=== PATIENT | female | born 1965 | race Two or more races ===

== ENCOUNTER 2017-01-14 01:35 | Emergency (ER) | payer MEDICARE, MEDICAID ==
[2017-01-14] MEDS ORDERED: MORPHINE SULFATE 10 MG/ML INJ IV ONE ×2 (02:49→06:40)
[2017-01-14] MEDS ORDERED: ONDANSETRON HCL INJ/PF 4 MG/2 ML SDV IV ONE (02:49)
--- NOTE | 2017-01-14 02:50 | ER Document Report ---
ED GI/ <MARION BOWMAN - Last Filed: 01/14/17 04:44> - General TRAVEL OUTSIDE OF THE [place] IN LAST 30 DAYS: No <CAPRI HENNESSY - Last Filed: 01/14/17 08:40> - General Chief Complaint: Abdominal Pain Stated Complaint: FLANK PAIN Time Seen by Provider: 01/14/17 02:19 Notes: Patient is a 51-year-old female who presents emergency department with her 2 daughters with a chief complaint of right lower quadrant pain for the past 24 hours. History and translation per her daughter Jocy were at the bedside. Family states that 2 days ago she was having nausea and vomiting which resolved on its own then after dialysis last evening approximately 24 hours ago she had sudden onset of right lower quadrant pain after removing fluid from dialysis. Has been in significant pain all day and had not much of an appetite. States she did have a bowel movement prior to arrival to the ED. Patient is been doing peritoneal dialysis nightly for the past 14 months with no previous history of bacterial peritonitis or complications from peritoneal dialysis. Family denies any fevers, chills, lethargy. Past medical history significant for diabetes, chronic kidney disease, previous hemodialysis, previous procedures for fistula in the left AC. Solutions Development Analyst is Dr. Burgos at [facility]. (CAPRI HENNESSY) - Related Data Allergies/Adverse Reactions: No Known Allergies Allergy (Verified 01/14/17 01:40) Home Medications: Current Home Medications Furosemide [Lasix] 200 mg PO BID 01/14/17 [History] Nifedipine [Procardia Xl] 90 mg PO DAILY 01/14/17 [History] Potassium Chloride 20 meq PO DAILY 01/14/17 [History] Sevelamer Carbonate [Renvela] 800 mg PO DAILY 01/14/17 [History] Sucroferric Oxyhydroxide [Velphoro] 500 mg PO DAILY 01/14/17 [History] Past Medical History - Social History Smoking Status: Unknown if Ever Smoked Family History: Reviewed & Not Pertinent Patient has suicidal ideation: No Patient has homicidal ideation: No - Past Medical History Cardiac Medical History: Reports: Hx Hypercholesterolemia, Hx Hypertension Endocrine Medical History: Reports: Hx Diabetes Mellitus Type 2 Renal/ Medical History: Reports: Hx End Stage Renal Disease - Chronic Renal Disease, Hx Peritoneal Dialysis Past Surgical History: Reports: Hx Abdominal Surgery - Catheters for peritoneal dialysis <CAPRI HENNESSY - Last Filed: 01/14/17 08:40> Review of Systems - Review of Systems Constitutional: No symptoms reported EENT: No symptoms reported Cardiovascular: No symptoms reported Respiratory: No symptoms reported Gastrointestinal: See HPI -: Yes All other systems reviewed and negative <TANNERCAPRI - Last Filed: 01/14/17 08:40> Physical Exam <MARION BOWMAN - Last Filed: 01/14/17 04:44> <CAPRI HENNESSY - Last Filed: 01/14/17 08:40> - Vital signs Vitals: Temp Pulse Resp BP Pulse Ox 98.3 F 82 18 134/58 H 98 01/14/17 01:40 01/14/17 01:40 01/14/17 01:40 01/14/17 01:40 01/14/17 01:40 - Notes Notes: PHYSICAL EXAM GENERAL: Alert, interacts well. LUNGS: Clear to auscultation bilaterally, no wheezes, rales, or rhonchi. No respiratory distress. HEART: Regular rate and rhythm. No murmurs, gallops, or rubs. ABDOMEN: Soft, nondistended, diffusely tender but worse in the right lower quadrant. No guarding, mild rebound, without rigidity.. Bowel sounds present in all 4 quadrants. EXTREMITIES: Moves all 4 extremities spontaneously. No edema, radial and dorsalis pedis pulses 2/4 bilaterally. No cyanosis. NEUROLOGICAL: Alert and oriented x4. Normal speech. PSYCH: Normal affect, normal mood. SKIN: Warm, dry, normal turgor. No rashes or lesions noted. (CAPRI HENNESSY) Course - Laboratory Result Diagrams: 01/14/17 03:35 01/14/17 03:35 <MARION BOWMAN - Last Filed: 01/14/17 04:44> - Laboratory Result Diagrams: 01/14/17 03:35 01/14/17 03:35 - Diagnostic Test Radiology reviewed: Image reviewed, Reports reviewed <CAPRI HENNESSY - Last Filed: 01/14/17 08:40> - Re-evaluation Re-evalutation: 01/14/17 04:44 I am supervising physician seeing the patient with Capri Hennessy physician clinical lab assistant. Patient has a history of recent cloudy dialysis fluid at her last exchange and has a white count of over 20,000 with abdominal pain. This is consistent with probable bacterial peritonitis. Patient is followed by Dr. Burgos. Currently did speak with Dr. Manzo who recommends exchange transfusion to obtain fluid to send for culture and cell count. We have already started to set that up to have that going. He recommends after the fluid has been exchanged to give the patient 1 g of vancomycin and 80 mg of gentamicin. Then have the patient transferred to [facility] being that we do not have any nephrology services here. I therefore called to speak with Dr. Jacome, hospitalist at [facility]. The transfer center coming back informed that Dr. Jacome has accepted the patient however she is on short waiting list. They said that she is #2 on a waiting list and therefore should have a bed hopefully soon. (MARION BOWMAN) 01/14/17 04:28 Patient is a 51-year-old female who is hemodynamically stable, no acute distress and afebrile. Presentation is concerning for bacterial peritonitis given risk factors with peritoneal dialysis. Labs do show a white blood cell count of 20.9. Patient does remain afebrile. CT without evidence of acute appendicitis. We do not have nephrology donor relations manager therefore call was placed to [facility] where patient's channel process plant operator is located. Discussed with channel process plant operator donor relations manager Dr. Manzo who states that the patient requires transport to their facility for inpatient care of bacterial peritonitis. Blood cultures and peritoneal fluid were sent for culture and cell count. Patient initiated on IV vancomycin and gentamicin per request of Dr. Manzo. Otherwise patient remaining stable and family remains at the bedside. 01/14/17 07:39 Call placed to [facility] who states that she will likely have a bed this afternoon pending discharges. Patient is resting comfortably after premedication with pain meds. Family plans to stay at the bedside until transfer. Discussed plan with Dr. Manzo who has requested Dianeal solution with Vancomycin and Fortez to be mixed for the patient and given until she is able to acquire a bed at [facility]. 01/14/17 08:20 I was contacted by patients Solutions Development Analyst Dr. Burgos who is requesting that the patient NOT be transferred to [facility]. He is requesting that she be discharged and sent to her dialysis center in [place] immediately upon discharge for outpatient management of her bacterial peritonitis. Patient is HDS and resting comfortably after medication. Discussed new plan with family who are agreeable to drive her to the dialysis center. I did speak with [facility] who is expecting the patient today for management. (CAPRI HENNESSY) - Vital Signs Vital signs: Temp Pulse Resp BP Pulse Ox 98.3 F 82 23 H 132/69 H 97 01/14/17 01:40 01/14/17 01:40 01/14/17 07:02 01/14/17 07:02 01/14/17 07:02 - Laboratory Laboratory results interpreted by me: 01/14/17 01/14/17 03:35 03:35 WBC 20.9 H Hgb 10.5 L Hct 32.2 L MCH 26.4 L RDW 15.2 H Seg Neuts % (Manual) 88 H Lymphocytes % (Manual) 9 L Abs Neuts (Manual) 18.4 H Potassium 3.3 L Chloride 95 L BUN 63 H Creatinine 9.82 H Est GFR ( Amer) 5 L Est GFR (Non-Af Amer) 4 L Glucose 245 H Calcium 6.8 L* Direct Bilirubin 0.6 H Alkaline Phosphatase 222 H Albumin 3.2 L Discharge <MARION BOWMAN - Last Filed: 01/14/17 04:44> <CAPRI HENNESSY - Last Filed: 01/14/17 08:40> - Discharge Clinical Impression: Bacterial peritonitis Condition: Stable Disposition: HOME, SELF-CARE Additional Instructions: Please report over to [facility] in [place] immediately upon discharge for management of your bacterial peritonitis. This is per recommendation from your channel process plant operator Dr. Burgos. If you are not able to make it over to [place] dialysis, please report immediately to the [facility] emergency department in [place] or return back here. Forms: Parent Work Note Referrals: ROXANNE BURGOS MD [NO LOCAL MD] - 01/14/17 (Immediately upon discharge)
--- NOTE | 2017-01-14 03:42 | RADIOLOGY REPORT (SQ) ---
EXAM DESCRIPTION: CT ABD/PELVIS NO ORAL OR IV COMPLETED DATE/TIME: 01/14/2017 3:11 am REASON FOR STUDY: RLQ pain, peritoneal dialysis patient COMPARISON: None. TECHNIQUE: CT scan of the abdomen and pelvis performed without intravenous or oral contrast. Images reviewed with lung, soft tissue, and bone windows. Reconstructed coronal and sagittal MPR images revi ewed. All images stored on PACS. All CT scanners at this facility use dose modulation, iterative reconstruction, and/or weight based d osing when appropriate to reduce radiation dose to as low as reasonably achievable (ALARA). [facility]: Dose Right [facility]: CareDose [facility]: Dose Right [facility]: Teradose 4D [facility]: [employer] Technologies RADIATION DOSE: CT Rad equipment meets quality standard of care and radiation dose reduction techniq ues were employed. CTDIvol: 18.4 mGy. DLP: 1057 mGy-cm.mGy. LIMITATIONS: Motion artifact. FINDINGS: LOWER CHEST: Bibasilar atelectasis. No pleural effusion. NON-CONTRASTED LIVER, SPLEEN, ADRENALS: Evaluation limited by lack of IV contrast. No identified sign ificant masses. PANCREAS: No peripancreatic inflammatory changes. GALLBLADDER: Present. RIGHT KIDNEY AND URETER: Assessment for masses limited by lack of IV contrast. No significant calci fications. No hydronephrosis or hydroureter. LEFT KIDNEY AND URETER: Assessment for masses limited by lack of IV contrast. No significant calcif ications. No hydronephrosis or hydroureter. AORTA AND RETROPERITONEUM: Extensive atherosclerotic calcifications of the branches of the abdominal aorta. No abdominal aortic aneurysm. BOWEL AND PERITONEAL CAVITY: No dilated bowel loops. There is small amount of free fluid. Trace pne umoperitoneum. APPENDIX: Not visualized. PELVIS, BLADDER, AND ABDOMINAL WALL:The urinary bladder is decompressed. Uterus is present. There i s free pelvic fluid. The peritoneal catheter enters through the lower abdominal wall. Small fat and fluid containing umbilical hernia. BONES: Degenerative changes in the spine. IMPRESSION: Small pneumoperitoneum, may be secondary to peritoneal dialysis vs bowel perforation. C linical correlation recommended. Small ascites. COMMENT: Quality ID # [id number]: Final reports with documentation of one or more dose reduction techniques (e.g., Automated exposure control, adjustment of the mA and/or kV according to patient size, use of iterative reconstruction technique) TECHNICAL DOCUMENTATION: JOB ID: [id number]-64 2010 [facility] [employer]- All Rights Reserved
[2017-01-14 03:51] LABS: HEMATOCRIT 32.2 % (36.0-47.0); HEMOGLOBIN 10.5 g/dL (12.0-15.5); HGB HCT DIFFERENCE -0.7; MEAN CORPUSCULAR HEMOGLOBIN 26.4 pg (27.0-33.4); MEAN CORPUSCULAR HGB CONC 32.6 g/dL (32.0-36.0); MEAN CORPUSCULAR VOLUME 81 fl (80-97); RED BLOOD COUNT 3.98 10^6/uL (3.72-5.28); RED CELL DISTRIBUTION WIDTH 15.2 % (11.5-14.0); WHITE BLOOD COUNT 20.9 10^3/uL (4.0-10.5)
[2017-01-14 04:02] LABS: ALANINE AMINOTRANSFERASE 36 U/L (9-52); ALBUMIN 3.2 g/dL (3.5-5.0); ALKALINE PHOSPHATASE 222 U/L (38-126); ASPARTATE AMINO TRANSFERASE 19 U/L (14-36); BILIRUBIN,DIRECT 0.6 mg/dL (0.0-0.4); BILIRUBIN,TOTAL 0.7 mg/dL (0.2-1.3); BLOOD UREA NITROGEN 63 mg/dL (7-20); CHLORIDE 95 mmol/L (98-107); CREATININE RESULT 9.82 mg/dL (0.52-1.25); GLUCOSE 245 mg/dL (75-110); POTASSIUM 3.3 mmol/L (3.6-5.0); SODIUM 137.5 mmol/L (137-145); TOTAL PROTEIN 6.7 g/dL (6.3-8.2)
[2017-01-14 04:13] LABS: ANION GAP 19 (5-19); CARBON DIOXIDE 24 mmol/L (22-30)
[2017-01-14 04:14] LABS: BASOPHILS % (MANUAL) 0 % (0-2); EOSINOPHILS % (MANUAL) 0 % (0-6); LYMPHOCYTES % (MANUAL) 9 % (13-45); TOTAL CELLS COUNTED 100
[2017-01-14 04:15] LABS: TOXIC GRANULATION SLIGHT
[2017-01-14 04:16] LABS: PLATELET CLUMPS PRESENT; RBC MORPHOLOGY COMMENT NORMO-CYTIC/CHROMIC
[2017-01-14 04:20] LABS: CALCIUM 6.8 mg/dL (8.4-10.2)
[2017-01-14] MEDS ORDERED: GENTAMICIN SULFATE INJ 80 MG/2 ML VIAL IV ONE (05:46)
[2017-01-14] MEDS ORDERED: VANCOMYCIN HCL INJ 1000 MG VIAL IV ONE (05:46)
[2017-01-14 07:36] LABS: FLUID APPEARANCE CLOUDY; FLUID RBC SIDE 1 73; FLUID RBC SIDE 2 61; FLUID TYPE PERITONEAL; STAIN REACTIVITY CHECK ACCEPTABLE
[2017-01-14 07:37] LABS: FLUID RBC DILUENT USED NONE USED; FLUID RBC DILUTION FACTOR 1
[2017-01-14 08:41] VITALS: BP 128/59
[2017-01-15 08:23] LABS: TOTAL RBC SQUARES COUNTED FLD 225
== END 2017-01-14 08:41 | disposition home or self-care (01) ==
LOC: ER 01:35
DX: K65.9 Peritonitis, unspecified (principal); B96.89 Other specified bacterial agents as the cause of diseases classified elsewhere; R10.31 Right lower quadrant pain; R10.817 Generalized abdominal tenderness; R63.0 Anorexia; I12.0 Hypertensive chronic kidney disease with stage 5 chronic kidney disease or end stage renal disease; E11.22 Type 2 diabetes mellitus with diabetic chronic kidney disease; N18.6 End stage renal disease; Z99.2 Dependence on renal dialysis; Z98.890 Other specified postprocedural states
CPT/HCPCS: 96376; 99284; 96375; 96365; 96366; 96367; 36415; 87040; 87205; 87070; 85025; 89050; 87075; 87077; 80053; 87186; 74176; J1580; J2270; J2405; J3370

== ENCOUNTER 2019-04-29 04:03 | Inpatient (IN) | payer MEDICARE, MEDICAID ==
--- NOTE | 2019-04-29 04:30 | ER Document Report ---
ED Fall - General Chief Complaint: Fall Stated Complaint: FALL/ANKLE PAIN Time Seen by Provider: 04/29/19 04:27 Mode of Arrival: Medic Information source: Patient Notes: This 53-year-old dialysis patient got up this morning to go to the bathroom when she lost her footing and fell. The patient felt lightheaded, did not pass out and injured the right ankle. Apparently lost her balance falling onto the floor and unable to get up. EMS was called and family noted deformity of the right ankle. She is a dialysis patient and is scheduled for dialysis. TRAVEL OUTSIDE OF THE [place] IN LAST 30 DAYS: No - Related data Allergies/Adverse Reactions: No Known Allergies Allergy (Verified 01/14/17 01:40) Past Medical History - Social History Smoking Status: Unknown if Ever Smoked Family History: Reviewed & Not Pertinent - Past Medical History Cardiac Medical History: Reports: Hx Hypercholesterolemia, Hx Hypertension Endocrine Medical History: Reports: Hx Diabetes Mellitus Type 2 Renal/ Medical History: Reports: Hx End Stage Renal Disease - Chronic Renal Disease, Hx Peritoneal Dialysis Past Surgical History: Reports: Hx Abdominal Surgery - Catheters for peritoneal dialysis Review of Systems - Review of Systems Notes: Constitutional: Negative for fever. HENT: Negative for sore throat. Eyes: Negative for visual changes. Cardiovascular: Negative for chest pain. Respiratory: Negative for shortness of breath. Gastrointestinal: Negative for abdominal pain, vomiting or diarrhea. Genitourinary: Negative for dysuria. Musculoskeletal: + Right ankle deformity, + right ankle pain Skin: Negative for rash. Neurological: Negative for headaches, weakness or numbness. 10 point ROS negative except as marked above and in HPI. Physical Exam - Vital signs Vitals: Resp Pulse Ox 23 H 97 04/29/19 04:17 04/29/19 04:17 - Notes Notes: PHYSICAL EXAMINATION: Physical Exam: General: Well-nourished well-developed 53-year-old woman in no acute distress HEENT: NC/AT, pupils equal round and reactive to light, MM moist,nares clear, oropharynx clear, airway patent Neck: supple, no adenopathy, no masses. Good range of motion Lungs: clear, no wheezing, no rales no rhonchi CVS: Regular rate and rhythm no murmur gallop or rub Abdomen: Soft, active, nontender, no masses, no hepatosplenomegaly Ext: Right ankle with obvious deformity and crepitus, good dorsalis pedis pulse.. Neuro: Alert and responsive, moving all 4 extremities on command, cranial nerves intact, no focal findings Skin: Intact no open lesions, no rash PSYCH: Normal mood, normal affect. Course - Re-evaluation Re-evalutation: 04/29/19 05:52 53-year-old dialysis 1 patient fall with trimalleolar fracture of the right ankle with dislocation. The ankle was reduced and splinted. I spoke with the orthopedist on-call Dr. Crocker, states that he can be consulted and will perform the procedure if nephrology is on board. Hospitalist could admit the patient and he will consult and perform the surgery. Dr. Hernandez nephrology on-call was contacted and states that she would be able to dialyze the patient on Friday and should not be a problem. Hospitalist was paged to admit the patient for inpatient services, I discussed this plan with the family of Ms. Julio, since she is from [place], they would like to [facility] procedure. 04/29/19 06:50 The hospitalist, Dr. Pastor has returned my phone call, states that he will inform the team of the pending admission and the plans for orthopedic consultation as well as nephrology involvement for the dialysis. - Vital Signs Vital signs: Temp Pulse Resp BP Pulse Ox 98.3 F 75 16 132/57 H 97 04/30/19 03:00 04/30/19 03:00 04/30/19 03:00 04/30/19 03:00 04/30/19 03:00 - Laboratory Result Diagrams: 04/30/19 04:09 04/30/19 04:09 Laboratory results interpreted by me: 04/29/19 04/29/19 04:25 04:25 WBC 15.8 H RDW 15.2 H Lymph % (Auto) 11.4 L Absolute Neuts (auto) 12.8 H Seg Neutrophils % 81.2 H Sodium 135.3 L Chloride 94 L BUN 38 H Creatinine 5.52 H Est GFR ( Amer) 10 L Est GFR (MDRD) Non-Af 8 L Glucose 249 H Calcium 8.0 L Direct Bilirubin 0.6 H Alkaline Phosphatase 335 H Procedures - Conscious Sedation Conscious sedation Time started: 05:10 Time completed: 05:38 Consent obtained: Yes Indication: Trimalleolar fracture of the right ankle with dislocation. Emergent conditions applies.: E. - ASA Classification Pt with a mild systemic disease.: P2. - ASA Classification. - Dialysis patient Airway Evaluation: Normal anatomy Mallampati Classification: Class 1 Used during procedure: Suction available, IV access obtained Medications administered: Versed - 4 mg IV, Fentanyl - 100 mcg IV I personally performed/intraservice time: 30 min or less Complications: No - Immobilization Right Lower Ankle Time completed: 05:40 Pre-Proc Neuro Vasc Exam: Normal Immobilizer type: Ankle stirrup, Short Leg Posterior Performed by: Provider assisted, RN, Other - Emergency department tech Post-Proc Neuro Vasc Exam: Normal Alignment checked and good: Yes - Joint Reduction/Fracture Care Right Ankle Time completed: 05:40 Consent obtained: Yes Conscious sedation: Yes Pre-procedure NV exam: Yes Fracture: Closed Manipulation comment: Traction and lateral pressure manipulation for alignment. Post-procedure NV exam: Yes Post-reduction x-ray: Joint reduced Reduction attempts: 1 Complications: No Discharge - Discharge Clinical Impression: End-stage renal disease on hemodialysis Closed trimalleolar fracture of right ankle Qualifiers: Encounter type: initial encounter Qualified Code(s): S82.851A - Displaced trimalleolar fracture of right lower leg, initial encounter for closed fracture Fall Qualifiers: Encounter type: initial encounter Qualified Code(s): W19.XXXA - Unspecified fall, initial encounter Condition: Good Disposition: ADMITTED INPATIENT Admitting Provider: Lissett (Hospitalist) Unit Admitted: Medical Floor
[2019-04-29] MEDS ORDERED: MIDAZOLAM 2 MG/2 ML INJ IV ONE (04:32)
[2019-04-29] MEDS ORDERED: FENTANYL CITRATE INJ/PF 100 MCG/2 ML AMPUL IV ONE (04:34)
--- NOTE | 2019-04-29 05:41 | RADIOLOGY REPORT (SQ) ---
EXAM DESCRIPTION: XR ANKLE 3 OR MORE VIEWS COMPLETED DATE/TME: 04/29/2019 00:00 CLINICAL HISTORY: 53 years Female, deformity COMPARISON: None. Findings: Acute comminuted oblique fracture of the distal diametaphysis of the right fibula, 0.6 cm posterior- lateral displacement. Transverse fracture of the right medial malleolus, 0.9 cm lateral displacement. Moderate lateral talotibial subluxation moderate lateral tilt. Swelling. Atherosclerosis. Bones, joints, and soft tissues of the RIGHT XR ANKLE 3 OR MORE VIEWS appear otherwise unremarkable. IMPRESSION: 1. Acute comminuted oblique fracture of the distal diametaphysis of the right fibula, 0.6 cm posterior- lateral displacement. 2. Transverse fracture of the right medial malleolus, 0.9 cm lateral displacement. 3. Moderate lateral talotibial subluxation moderate lateral tilt.
[2019-04-29 05:58] LABS: ABSOLUTE BASOPHILS # (AUTO) 0.1 10^3/uL (0.0-0.2); ABSOLUTE EOSINOPHILS # (AUTO) 0.1 10^3/uL (0.0-0.6); ABSOLUTE LYMPHOCYTES (AUTO) 1.8 10^3/uL (0.5-4.7); ABSOLUTE NEUT (AUTO) 12.8 10^3/uL (1.7-8.2); BASOPHILS % (AUTO) 0.5 % (0-2); EOSINOPHILS % (AUTO) 0.7 % (0-6); HEMATOCRIT 37.7 % (36.0-47.0); HEMOGLOBIN 12.4 g/dL (12.0-15.5); LYMPHOCYTES % (AUTO) 11.4 % (13-45); MEAN CORPUSCULAR HEMOGLOBIN 27.7 pg (27.0-33.4); MEAN CORPUSCULAR HGB CONC 32.7 g/dL (32.0-36.0); MEAN CORPUSCULAR VOLUME 85 fl (80-97); MONOCYTES % (AUTO) 6.2 % (3-13); PLATELET COUNT 257 10^3/uL (150-450); RED BLOOD COUNT 4.46 10^6/uL (3.72-5.28); RED CELL DISTRIBUTION WIDTH 15.2 % (11.5-14.0); SEGMENTED NEUTROPHILS % (AUTO) 81.2 % (42-78); TOTAL CELLS COUNTED % (AUTO) 100 %; WHITE BLOOD COUNT 15.8 10^3/uL (4.0-10.5)
[2019-04-29 06:00] LABS: PROTHROMBIN TIME 14.3 SEC (11.4-15.4)
[2019-04-29 06:01] LABS: PARTIAL THROMBOPLASTIN TIME 31.1 SEC (23.5-35.8)
[2019-04-29 06:28] LABS: ALBUMIN 3.8 g/dL (3.5-5.0); ALKALINE PHOSPHATASE 335 U/L (38-126); ANION GAP 15 (5-19); ASPARTATE AMINO TRANSFERASE 26 U/L (14-36); BILIRUBIN,DIRECT 0.6 mg/dL (0.0-0.4); BILIRUBIN,TOTAL 0.6 mg/dL (0.2-1.3); BLOOD UREA NITROGEN 38 mg/dL (7-20); CARBON DIOXIDE 26 mmol/L (22-30); CHLORIDE 94 mmol/L (98-107); GLUCOSE 249 mg/dL (75-110); TOTAL PROTEIN 8.2 g/dL (6.3-8.2)
--- NOTE | 2019-04-29 07:11 | RADIOLOGY REPORT (SQ) ---
EXAM DESCRIPTION: XR ANKLE 2 VIEWS COMPLETED DATE/TME: 04/29/2019 00:00 CLINICAL HISTORY: 53 years, Female, POST REDUCTION COMPARISON: 04/29/2019 at 4:37 AM NUMBER OF VIEWS: Two TECHNIQUE: Two views of the right ankle LIMITATIONS: None. FINDINGS: The previously described fractures involving the distal fibula and medial malleolus are now in near anatomic alignment. The tibiotalar joint is now in anatomic alignment. A fiberglass splint has been placed which obscures fine bony detail. There is soft tissue swelling surrounding the ankle. Vascular calcific effusions are noted. IMPRESSION: Reduction of the previously described fractures of the distal fibula and medial malleolus, which are now in near anatomic alignment. Reduction of the tibiotalar subluxation. copyright 2010 [employer]- All Rights Reserved
--- NOTE | 2019-04-29 07:11 | RADIOLOGY REPORT (SQ) ---
EXAM DESCRIPTION: XR CHEST 1 VIEW COMPLETED DATE/TME: 04/29/2019 05:42 CLINICAL HISTORY: 53 years, Female, pre-op COMPARISON: None. NUMBER OF VIEWS: One TECHNIQUE: AP view the chest LIMITATIONS: None. FINDINGS: The lungs are clear. The heart is normal in size. There is no pneumothorax or pleural effusion. There is mild elevation of the right hemidiaphragm. IMPRESSION: No acute cardiopulmonary abnormality. copyright 2010 [employer]- All Rights Reserved
[2019-04-29] MEDS ORDERED: NORMAL SALINE 1000 ML 750 ML IV PRN (08:41)
[2019-04-29] MEDS ORDERED: DEXTROSE 40% GEL 15 GM TUBE PO PRN ×2 (08:48)
[2019-04-29] MEDS ORDERED: DEXTROSE 50%-WATER 25 GM/50 ML DISP.SYRIN IV PRN ×2 (08:48)
[2019-04-29] MEDS ORDERED: GLUCAGON,HUMAN RECOMB 1 MG INJ IM PRN (08:48)
[2019-04-29] MEDS ORDERED: ACETAMINOPHEN 325 MG TABLET PO PRN (08:59)
--- NOTE | 2019-04-29 09:05 | PDOC H&P ---
History of Present Illness Admission Date/PCP: NATHALIE LIU NP Patient complains of: Fall, right ankle pain History of Present Illness: OSMIN LORA is a 53 year old female Cuban-speaking female with a history of hypertension, diabetes mellitus with diabetic neuropathy, ESRD on dialysis MWF, who presents to the hospital after experiencing a fall. Patient states that she was getting up to go to the bathroom when she suddenly felt lightheaded and while attempting to move slipped on the floor fell. After that she is still experiencing significant right ankle pain and was unable to bear any weight on her foot. Ambulance was called and patient was brought to the hospital. Patient never syncopized and was awake throughout the event. Patient took her blood pressure medications last night. Patient still experiencing pain in her right ankle at this time but improved. She does have diabetic neuropathy history of pain sensation is limited. In the ER, patient was noted to have right ankle fracture subsequently hospitalist consulted for admission. Past Medical History Cardiac Medical History: Reports: Hypertension Endocrine Medical History: Reports: Diabetes Mellitus Type 2 Renal/ Medical History: Reports: End Stage Renal Disease - Chronic Renal Disease Past Surgical History Past Surgical History: Reports: Vascular Surgery - Dialysis AV access placement Social History Information Source: Patient, Relative Smoking Status: Never Smoker Frequency of Alcohol Use: None Hx Recreational Drug Use: No Hx Prescription Drug Abuse: No - Advance Directive Resuscitation Status: Full Code Family History Family History: DM, Hypertension Parental Family History Reviewed: Yes Children Family History Reviewed: NA Sibling(s) Family History Reviewed.: NA Medication/Allergy Home Medications: Furosemide [Lasix] 200 mg PO BID 01/14/17 Nifedipine [Procardia Xl] 90 mg PO DAILY 01/14/17 Potassium Chloride 20 meq PO DAILY 01/14/17 Sevelamer Carbonate [Renvela] 800 mg PO DAILY 01/14/17 Sucroferric Oxyhydroxide [Velphoro] 500 mg PO DAILY 01/14/17 Allergies/Adverse Reactions: No Known Allergies Allergy (Verified 01/14/17 01:40) Review of Systems Constitutional: ABSENT: fatigue, fever(s) Eyes: ABSENT: visual disturbances Nose, Mouth, and Throat: ABSENT: headache(s) Cardiovascular: ABSENT: chest pain Respiratory: ABSENT: dyspnea Gastrointestinal: ABSENT: abdominal pain Genitourinary: PRESENT: other - Anuric. ABSENT: dysuria Integumentary: ABSENT: diaphoresis Neurological: PRESENT: dizziness - Lightheadedness earlier today but currently notes lightheaded while laying in bed. ABSENT: confusion Endocrine: ABSENT: polyuria Hematologic/Lymphatic: ABSENT: easy bleeding Physical Exam Vital Signs: Temp Pulse Resp BP Pulse Ox 17 127/59 H 97 04/29/19 07:25 04/29/19 07:25 04/29/19 07:25 Intake & Output 04/28/19 04/29/19 04/30/19 06:59 06:59 06:59 Weight 109.1 kg General appearance: PRESENT: no acute distress, cooperative Head exam: PRESENT: normocephalic Mouth exam: PRESENT: neck supple Neck exam: ABSENT: JVD Respiratory exam: PRESENT: clear to auscultation lindsay, unlabored. ABSENT: tachypnea, wheezes Cardiovascular exam: PRESENT: +S1, +S2. ABSENT: tachycardia GI/Abdominal exam: PRESENT: soft. ABSENT: rebound, rigid, tenderness Extremities exam: PRESENT: other - Right ankle wrapped tight with Steffen bandage mild tenderness Musculoskeletal exam: ABSENT: ambulatory Neurological exam: PRESENT: alert, awake, oriented to person, oriented to place, oriented to time Psychiatric exam: ABSENT: agitated, anxious Focused psych exam: ABSENT: pressured speech Results Laboratory Results: 04/29/19 04:25 04/29/19 04:25 04/29/19 04/29/19 04:25 04:25 WBC 15.8 H RBC 4.46 Hgb 12.4 Hct 37.7 MCV 85 MCH 27.7 MCHC 32.7 RDW 15.2 H Plt Count 257 Seg Neutrophils % 81.2 H Sodium 135.3 L Potassium 5.0 Chloride 94 L Carbon Dioxide 26 Anion Gap 15 BUN 38 H Creatinine 5.52 H Est GFR ( Amer) 10 L Glucose 249 H Calcium 8.0 L Total Bilirubin 0.6 AST 26 Alkaline Phosphatase 335 H Total Protein 8.2 Albumin 3.8 Impressions: Ankle X-Ray 04/29/19 00:00 IMPRESSION: Reduction of the previously described fractures of the distal fibula and medial malleolus, which are now in near anatomic alignment. Reduction of the tibiotalar subluxation. copyright 2010 [employer]- All Rights Reserved Chest X-Ray 04/29/19 05:42 IMPRESSION: No acute cardiopulmonary abnormality. copyright 2010 [employer]- All Rights Reserved Assessment and Plan - Diagnosis (1) Closed right ankle fracture Qualifiers: Encounter type: initial encounter Qualified Code(s): S82.891A - Other fracture of right lower leg, initial encounter for closed fracture Is this a current diagnosis for this admission?: Yes Plan: Acute fracture of distal right fibula, transverse malleolar fracture with displacement and subluxation Orthopedics consulted Pain control with Tylenol and Percocet as needed (2) Diabetes mellitus type 2 in obese Is this a current diagnosis for this admission?: Yes Plan: Complicated by diabetic neuropathy. Home regimen needs Tresiba 25 units n ightly. We will place in Lantus 13 units nightly tonight with anticipation of surgery tomorrow. Sliding scale insulin and Accu-Cheks. (3) Fall Qualifiers: Encounter type: initial encounter Qualified Code(s): W19.XXXA - Unspecified fall, initial encounter Is this a current diagnosis for this admission?: Yes Plan: Noted to be lightheaded at the time of fall. Patient's daughter states patient was hypotensive in the 90s over 50s upon arrival of EMS. Check orthostatics. Gentle IV fluid hydration. (4) Hypertension Qualifiers: Hypertension type: secondary to endocrine disorders Qualified Code(s): I 15.2 - Hypertension secondary to endocrine disorders Is this a current diagnosis for this admission?: Yes Plan: We will hold blood pressure medications for now and monitor BP given reported hypotension this morning which may have been secondary to taking her blood pressure meds last night. She takes Coreg twice daily and amlodipine at night. (5) End-stage renal disease on hemodialysis Is this a current diagnosis for this admission?: Yes Plan: Nephrology consulted. Receives dialysis Friday. Reports that ESRD secondary to diabetes. Phosphate binders. - Time Time Spent with patient: 35 or more minutes
--- NOTE | 2019-04-29 10:01 | EKG REPORT ---
SEVERITY:- BORDERLINE ECG - SINUS RHYTHM PROBABLE LEFT ATRIAL ABNORMALITY : Confirmed by: Cris Reagan 29-Apr-2019 10:00:32
[2019-04-29] MEDS: DOCUSATE SODIUM 100 MG CAPSULE PO SCH (10:28)
[2019-04-29] MEDS: INSULIN LISPRO 100 UNIT/ML 3 ML VIAL SUBCUT SCH ×3 (11:35→21:08)
[2019-04-29] MEDS: HEPARIN SOD (PORCINE) 5,000 UNIT/ML 1 ML VIAL SUBCUT SCH ×2 (13:27→21:09)
--- NOTE | 2019-04-29 14:34 | PDOC CONSULTATION ---
Consultation Consult Date: 04/29/19 Attending physician:: CODIE YOUNG Provider Consulted: JACK ELIZONDO Consult reason:: Right ankle displaced bimalleolar fracture History of Present Illness Admission Date/PCP: 04/29/19 09:19 NATHALIE LIU NP Patient complains of: Right ankle pain and deformity History of Present Illness: OSMIN LORA is a 53 year old female with hypertension, diabetes, diabetic neuropathy, end-stage renal disease on dialysis who sustained a low-energy fall at home last evening while going to the bathroom. She was brought to the emergency department by ambulance complaining of pain, deformity and inability to ambulate. Radiographs demonstrated a comminuted, displaced bimalleolar fracture of the right ankle. She was admitted to the hospitalist service for medical management and dialysis prior to surgery. Past Medical History Cardiac Medical History: Reports: Hyperlipidema, Hypertension Endocrine Medical History: Reports: Diabetes Mellitus Type 2 Renal/ Medical History: Reports: End Stage Renal Disease - Chronic Renal Disease Past Surgical History Past Surgical History: Reports: Vascular Surgery - Dialysis AV access placement Social History Smoking Status: Never Smoker Frequency of Alcohol Use: None Hx Recreational Drug Use: No Drugs: None Hx Prescription Drug Abuse: No - Advance Directive Resuscitation Status: Full Code Family History Family History: DM, Hypertension Parental Family History Reviewed: Yes Children Family History Reviewed: NA Sibling(s) Family History Reviewed.: NA Medication/Allergy Home Medications: Amlodipine Besylate [Norvasc 5 mg Tablet] 5 mg PO BID 04/29/19 Carvedilol [Coreg 12.5 mg Tablet] 12.5 mg PO Q12 04/29/19 Ferric Citrate [Auryxia] 630 mg PO MEALS 04/29/19 Insulin Degludec [Tresiba Flextouch U-200] 25 units SQ QPM 04/29/19 Losartan Potassium 100 mg PO QPM 04/29/19 Vit B Comp No.3/Folic/C/Biotin [Gwendolyn-[place] Rx Tablet] 1 tab PO DAILY 04/29/19 Allergies/Adverse Reactions: No Known Allergies Allergy (Verified 01/14/17 01:40) Review of Systems Constitutional: ABSENT: chills, fever(s), headache(s), weight gain, weight loss Cardiovascular: ABSENT: chest pain, dyspnea on exertion, edema, orthropnea, palpitations Respiratory: ABSENT: cough, hemoptysis Gastrointestinal: ABSENT: abdominal pain, constipation, diarrhea, hematemesis, hematochezia, nausea, vomiting Genitourinary: ABSENT: dysuria, hematuria Musculoskeletal: PRESENT: as per HPI Neurological: PRESENT: paresthesias Psychiatric: ABSENT: anxiety, depression, homidical ideation, suicidal ideation Endocrine: PRESENT: as per HPI Physical Exam Vital Signs: Temp Pulse Resp BP Pulse Ox 98.4 F 69 20 119/54 L 97 04/29/19 11:06 04/29/19 12:00 04/29/19 11:06 04/29/19 11:52 04/29/19 11:06 Intake & Output 04/28/19 04/29/19 04/30/19 06:59 06:59 06:59 Intake Total 50 Balance 50 Weight 109.1 kg 106.1 kg General appearance: PRESENT: no acute distress Head exam: PRESENT: atraumatic Eye exam: PRESENT: PERRLA Mouth exam: PRESENT: moist, tongue midline Neck exam: ABSENT: carotid bruit, JVD, lymphadenopathy, thyromegaly Respiratory exam: PRESENT: clear to auscultation lindsay. ABSENT: rales, rhonchi, wheezes Cardiovascular exam: PRESENT: RRR. ABSENT: diastolic murmur, rubs, systolic murmur GI/Abdominal exam: PRESENT: normal bowel sounds, soft. ABSENT: distended, guarding, mass, organolmegaly, rebound, tenderness Rectal exam: PRESENT: deferred Musculoskeletal exam: PRESENT: other - The right ankle is splinted. The patient is able to actively move her toes. There is good capillary refill of her toes. The patient states that her sensation is at baseline. Psychiatric exam: PRESENT: appropriate affect, normal mood. ABSENT: homicidal ideation, suicidal ideation Results Laboratory Results: 04/29/19 04:25 04/29/19 04:25 04/29/19 04/29/19 04:25 04:25 WBC 15.8 H RBC 4.46 Hgb 12.4 Hct 37.7 MCV 85 MCH 27.7 MCHC 32.7 RDW 15.2 H Plt Count 257 Seg Neutrophils % 81.2 H Sodium 135.3 L Potassium 5.0 Chloride 94 L Carbon Dioxide 26 Anion Gap 15 BUN 38 H Creatinine 5.52 H Est GFR ( Amer) 10 L Glucose 249 H Calcium 8.0 L Total Bilirubin 0.6 AST 26 Alkaline Phosphatase 335 H Total Protein 8.2 Albumin 3.8 Impressions: Ankle X-Ray 04/29/19 00:00 IMPRESSION: Reduction of the previously described fractures of the distal fibula and medial malleolus, which are now in near anatomic alignment. Reduction of the tibiotalar subluxation. copyright 2010 [employer]- All Rights Reserved Chest X-Ray 04/29/19 05:42 IMPRESSION: No acute cardiopulmonary abnormality. copyright 2010 [employer]- All Rights Reserved Assessment & Plan - Time Time Spent: 30 to 50 Minutes Anticipated discharge: Home Within: within 24 hours - Plan Summary Plan Summary: The findings were discussed with the patient. Radiographs demonstrate a comminuted, displaced bimalleolar fracture of the right ankle. Radiographs also demonstrate fracture lines entering the syndesmotic area of the distal tibia which may indicate a syndesmotic disruption as well. I have recommended open reduction with internal fixation of the bimalleolar ankle fracture with possible syndesmotic internal fixation. Risks, benefits, and alternatives were discussed with the patient. Risks include the risk of with anesthesia, the risk of infection, the risk of injury to nerves and vessels, malunion, and nonunion. The need for possible additional surgical procedures were also discussed. An opportunity for questions was provided. All questions were answered to her satisfaction. The patient expressed understanding and wishes to proceed
[2019-04-29] MEDS: OXYCODONE-ACETAMINOPHEN 5-325 MG TABLET PO PRN (16:31)
--- NOTE | 2019-04-29 20:30 | PDOC CONSULTATION ---
Consultation Consult Date: 04/29/19 Provider Consulted: ANUSHKA COLLINS Consult reason:: ESRD requiring HD History of Present Illness Admission Date/PCP: 04/29/19 09:19 NATHALIE LIU NP History of Present Illness: OSMIN LORA is a 53 year old lady with history of end-stage renal disease on hemodialysis on Mondays, Wednesdays and Fridays under the supervision of Dr. Tiwari at [facility] dialysis unit, hypertension, diabetes mellitus type 2 who was admitted early this morning after a fall. Patient related that at around 2 AM today she got up to go to the bathroom, felt lightheaded and slipped on the floor and fell. She did experience right ankle pain, and she was unable to bear weight and also noted right ankle deformity. She denies losing consciousness. EMS was called and she was brought to the emergency room. Initial evaluation showed a right ankle x-ray showing acute comminuted oblique fracture of the distal diametaphysis of the right fibula, 0.6 cm posterior lateral displacement; transverse fracture of the right medial malleolus, 0.9 cm lateral displacement and moderate lateral talotibial subluxation with moderate lateral tilt. Patient is scheduled for surgery tomorrow by orthopedics. Patient has been on hemodialysis for 4 years. Most likely cause of her ESRD is diabetes mellitus type 2 and hypertension. Her last hemodialysis was yesterday. Currently her right ankle and right leg has been immobilized. The only complaint she has is some diarrhea 2 days ago. Past Medical History Cardiac Medical History: Reports: Hyperlipidemia, Hypertension-primary Endocrine Medical History: Reports: Diabetes Mellitus Type 2 Renal/ Medical History: Reports: End Stage Renal Disease - Chronic Renal Disease Past Surgical History Past Surgical History: Reports: Dialysis Access Surgery AVF, Vascular Surgery - PermCath placement Social History Information Source: Patient Lives with: Family Smoking Status: Never Smoker Frequency of Alcohol Use: None Hx Recreational Drug Use: No Drugs: None Hx Prescription Drug Abuse: No - Advance Directive Resuscitation Status: Full Code Family History Family History: Chronic Kidney Disease - Mother, DM - Mother Parental Family History Reviewed: Yes Children Family History Reviewed: Yes Sibling(s) Family History Reviewed.: Yes Medication/Allergy Home Medications: Amlodipine Besylate [Norvasc 5 mg Tablet] 5 mg PO BID 04/29/19 Carvedilol [Coreg 12.5 mg Tablet] 12.5 mg PO Q12 04/29/19 Ferric Citrate [Auryxia] 630 mg PO MEALS 04/29/19 Insulin Degludec [Tresiba Flextouch U-200] 25 units SQ QPM 04/29/19 Losartan Potassium 100 mg PO QPM 04/29/19 Vit B Comp No.3/Folic/C/Biotin [Gwendolyn-[place] Rx Tablet] 1 tab PO DAILY 04/29/19 Allergies/Adverse Reactions: No Known Allergies Allergy (Verified 01/14/17 01:40) Review of Systems All systems: reviewed and no additional remarkable complaints except as stated Review of Systems: Constitutional: ABSENT: chills, fatigue, fever(s), headache(s), weight gain, weight loss Eyes: ABSENT: visual disturbances Ears: ABSENT: hearing changes Cardiovascular: ABSENT: chest pain, dyspnea on exertion, edema, orthropnea, palpitations Respiratory: ABSENT: cough, dyspnea, hemoptysis Gastrointestinal: ABSENT: abdominal pain, constipation, hematemesis, hematoc hezia, nausea, vomiting; admits diarrhea Genitourinary: ABSENT: dysuria, hematuria Musculoskeletal: ABSENT: joint swelling: Admits right ankle pain and deformity Integumentary: ABSENT: rash, wounds Neurological: ABSENT: abnormal gait, abnormal speech, confusion, dizziness, focal weakness, numbness, syncope Psychiatric: ABSENT: anxiety, depression Endocrine: ABSENT: cold intolerance, heat intolerance, polydipsia, polyuria Hematologic/Lymphatic: ABSENT: easy bleeding, easy bruising, lymphadenopathy Physical Exam Vital Signs: Temp Pulse Resp BP Pulse Ox 98.4 F 69 20 119/54 L 97 04/29/19 11:06 04/29/19 11:06 04/29/19 11:06 04/29/19 11:52 04/29/19 11:06 Intake & Output 04/28/19 04/29/19 04/30/19 06:59 06:59 06:59 Weight 109.1 kg Exam: General appearance: No acute distress, cooperative, well-developed, well- nourished Head exam: PRESENT: atraumatic, normocephalic Eye exam: PRESENT: Conjunctiva Orestes, EOMI, PERRLA. ABSENT: conjunctival injection, scleral icterus Mouth exam: PRESENT: moist, neck supple, tongue midline Neck exam: PRESENT: full ROM. ABSENT: carotid bruit, JVD, lymphadenopathy, thyromegaly Respiratory exam: PRESENT: clear to auscultation bilaterally. ABSENT: rales, rhonchi, stridor, wheezes Cardiovascular exam: PRESENT: RRR, +S1, +S2. ABSENT: systolic murmur Pulses: PRESENT: normal radial pulses, normal dorsalis pedis pulses GI/Abdominal exam: PRESENT: normal bowel sounds, soft. ABSENT: guarding, mass, tenderness Rectal exam: Deferred Extremities exam: PRESENT: full ROM except for the right leg and ankle. Right leg currently immobilized and wrapped with Steffen wrap. Left upper arm AV fistula with good bruit and thrill ABSENT: calf tenderness, pedal edema Musculoskeletal: PRESENT: full ROM. ABSENT: deformity Neurological exam: PRESENT: alert, Awake, Oriented to person, Oriented to place, Oriented to time, reflexes normal, CN II-XII grossly intact. ABSENT: motor sensory deficit Psychiatric exam: PRESENT: appropriate affect, normal mood. ABSENT: homicidal ideation, suicidal ideation Skin exam: PRESENT: intact, dry, warm. ABSENT: rash Results Laboratory Results: 04/29/19 04:25 04/29/19 04:25 04/29/19 04/29/19 04:25 04:25 WBC 15.8 H RBC 4.46 Hgb 12.4 Hct 37.7 MCV 85 MCH 27.7 MCHC 32.7 RDW 15.2 H Plt Count 257 Seg Neutrophils % 81.2 H Sodium 135.3 L Potassium 5.0 Chloride 94 L Carbon Dioxide 26 Anion Gap 15 BUN 38 H Creatinine 5.52 H Est GFR ( Amer) 10 L Glucose 249 H Calcium 8.0 L Total Bilirubin 0.6 AST 26 Alkaline Phosphatase 335 H Total Protein 8.2 Albumin 3.8 Impressions: Ankle X-Ray 04/29/19 00:00 IMPRESSION: Reduction of the previously described fractures of the distal fibula and medial malleolus, which are now in near anatomic alignment. Reduction of the tibiotalar subluxation. copyright 2011 [employer]- All Rights Reserved Chest X-Ray 04/29/19 05:42 IMPRESSION: No acute cardiopulmonary abnormality. copyright 2011 [employer]- All Rights Reserved Assessment & Plan - Diagnosis (1) Closed right ankle fracture Qualifiers: Encounter type: initial encounter Qualified Code(s): S82.891A - Other fracture of right lower leg, initial encounter for closed fracture Is this a current diagnosis for this admission?: Yes Plan: Orthopedics take patient to surgery tomorrow. (2) End-stage renal disease on hemodialysis Is this a current diagnosis for this admission?: Yes Plan: We will provide hemodialysis support while here in the hospital. We will plan to do dialysis tomorrow morning prior to surgery. (3) Diabetes mellitus type 2 in obese Is this a current diagnosis for this admission?: Yes (4) Hypertension Qualifiers: Hypertension type: secondary to endocrine disorders Qualified Code(s): I15.2 - Hypertension secondary to endocrine disorders Is this a current diagnosis for this admission?: Yes Plan: Well-controlled. (5) Fall Qualifiers: Encounter type: initial encounter Qualified Code(s): W19.XXXA - Unspecified fall, initial encounter Is this a current diagnosis for this admission?: Yes - Notes Notes: Thank you very much for this consultation. - Time Time Spent: 50 to 70 Minutes
[2019-04-29] MEDS ORDERED: INSULIN GLARGINE,HUM.REC.ANLOG 1,000 UNIT/10 ML VIAL SUBCUT SCH (22:00)
[2019-04-29] MEDS ORDERED: MIDODRINE HCL 5 MG TABLET PO ONE (23:00)
[2019-04-30 04:57] LABS: ABSOLUTE BASOPHILS # (AUTO) 0.1 10^3/uL (0.0-0.2); ABSOLUTE EOSINOPHILS # (AUTO) 0.1 10^3/uL (0.0-0.6); ABSOLUTE NEUT (AUTO) 7.2 10^3/uL (1.7-8.2); BASOPHILS % (AUTO) 0.5 % (0-2); HEMATOCRIT 33.7 % (36.0-47.0); HEMOGLOBIN 10.9 g/dL (12.0-15.5); LYMPHOCYTES % (AUTO) 26.2 % (13-45); MEAN CORPUSCULAR HGB CONC 32.5 g/dL (32.0-36.0); MEAN CORPUSCULAR VOLUME 83 fl (80-97); MONOCYTES % (AUTO) 8.9 % (3-13); PLATELET COUNT 265 10^3/uL (150-450); RED BLOOD COUNT 4.06 10^6/uL (3.72-5.28); RED CELL DISTRIBUTION WIDTH 14.8 % (11.5-14.0); SEGMENTED NEUTROPHILS % (AUTO) 63.4 % (42-78); TOTAL CELLS COUNTED % (AUTO) 100 %; WHITE BLOOD COUNT 11.4 10^3/uL (4.0-10.5)
[2019-04-30] MEDS ORDERED: NORMAL SALINE 1000 ML 1,000 ML IV PRN (05:00)
[2019-04-30 05:05] LABS: INTERNATIONAL RATION (INR) 1.13; PROTHROMBIN TIME 14.5 SEC (11.4-15.4)
[2019-04-30 05:06] LABS: PARTIAL THROMBOPLASTIN TIME 32.5 SEC (23.5-35.8)
[2019-04-30] MEDS: HEPARIN SOD (PORCINE) 5,000 UNIT/ML 1 ML VIAL SUBCUT SCH (05:09)
[2019-04-30 05:13] LABS: CALCIUM 7.3 mg/dL (8.4-10.2); GLUCOSE 246 mg/dL (75-110)
[2019-04-30 05:14] LABS: CHLORIDE 94 mmol/L (98-107); PHOSPHORUS 6.3 mg/dL (2.5-4.5); POTASSIUM 4.6 mmol/L (3.6-5.0)
[2019-04-30 05:19] LABS: CARBON DIOXIDE 20 mmol/L (22-30)
[2019-04-30 05:23] LABS: ANION GAP 21 (5-19)
[2019-04-30 05:26] LABS: BLOOD UREA NITROGEN 61 mg/dL (7-20)
[2019-04-30] MEDS: INSULIN LISPRO 100 UNIT/ML 3 ML VIAL SUBCUT SCH ×4 (08:39→21:16)
[2019-04-30] MEDS: DOCUSATE SODIUM 100 MG CAPSULE PO SCH (10:18)
[2019-04-30] MEDS ORDERED: MORPHINE SULFATE 10 MG/ML INJ IV ONE (11:00)
--- NOTE | 2019-04-30 11:59 | PDOC PROGRESS REPORT ---
Subjective Progress Note for:: 04/30/19 Subjective:: Patient feels well today. Denies any shortness of breath. Still having some pain in her right ankle but tolerable. Awaiting surgery today. Seen during dialysis. Reason For Visit: RIGHT ANKLE FRACTURE Physical Exam Vital Signs: Temp Pulse Resp BP Pulse Ox 98.3 F 75 16 132/57 H 97 04/30/19 03:00 04/30/19 03:00 04/30/19 03:00 04/30/19 03:00 04/30/19 03:00 Intake & Output 04/29/19 04/30/19 05/01/19 06:59 06:59 06:59 Intake Total 1890 Output Total 0 Balance 1890 Weight 109.1 kg 109.6 kg General appearance: PRESENT: no acute distress, cooperative Neck exam: ABSENT: JVD Respiratory exam: PRESENT: clear to auscultation lindsay, unlabored. ABSENT: t achypnea, wheezes Cardiovascular exam: PRESENT: RRR, +S1, +S2. ABSENT: tachycardia GI/Abdominal exam: PRESENT: soft. ABSENT: rebound, rigid, tenderness Extremities exam: PRESENT: joint swelling, tenderness - right ankle Neurological exam: PRESENT: alert, awake Results Laboratory Results: 04/30/19 04:09 04/30/19 04:09 04/30/19 04/30/19 04:09 04:09 WBC 11.4 H RBC 4.06 Hgb 10.9 L Hct 33.7 L MCV 83 MCH 27.0 MCHC 32.5 RDW 14.8 H Plt Count 265 Seg Neutrophils % 63.4 Sodium 135.1 L Potassium 4.6 Chloride 94 L Carbon Dioxide 20 L Anion Gap 21 H BUN 61 H D Creatinine 8.02 H Est GFR ( Amer) 6 L Glucose 246 H Calcium 7.3 L Phosphorus 6.3 H Impressions: Ankle X-Ray 04/29/19 00:00 IMPRESSION: Reduction of the previously described fractures of the distal fibula and medial malleolus, which are now in near anatomic alignment. Reduction of the tibiotalar subluxation. copyright 2011 [employer]- All Rights Reserved Chest X-Ray 04/29/19 05:42 IMPRESSION: No acute cardiopulmonary abnormality. copyright 2011 [employer]- All Rights Reserved Assessment and Plan - Diagnosis (1) Closed right ankle fracture Qualifiers: Encounter type: initial encounter Qualified Code(s): S82.891A - Other fracture of right lower leg, initial encounter for closed fracture Is this a current diagnosis for this admission?: Yes Plan: Acute fracture of distal right fibula, transverse malleolar fracture with displacement and subluxation Orthopedics consulted-plan for open reduction and internal fixation today after dialysis Pain control with Tylenol and Percocet as needed (2) Diabetes mellitus type 2 in obese Is this a current diagnosis for this admission?: Yes Plan: Complicated by diabetic neuropathy. Home regimen needs Tresiba 25 units nightly. Resume Lantus 25 units nightly. Sliding scale insulin and Accu-Cheks. (3) Fall Qualifiers: Encounter type: initial encounter Qualified Code(s): W19.XXXA - Unspecified fall, initial encounter Is this a current diagnosis for this admission?: Yes Plan: Noted to be lightheaded at the time of fall but no head impact. Patient's daughter states patient was hypotensive in the 90s over 50s upon arrival of EMS. Lightheadedness was likely secondary to hypotension possibly from antihypertensive medications. Orthostatics done yesterday was negative. (4) Hypertension Qualifiers: Hypertension type: secondary to endocrine disorders Qualified Code(s): I15.2 - Hypertension secondary to endocrine disorders Is this a current diagnosis for this admission?: Yes Plan: She takes Coreg twice daily and amlodipine at night at home. Currently, we will continue to hold blood pressure medications due to episodes of hypotension. Will resume gradually if blood pressure starts to run high. (5) End-stage renal disease on hemodialysis Is this a current diagnosis for this admission?: Yes Plan: Nephrology consulted. Receives dialysis Friday. Reports that ESRD secondary to diabetes. Phosphate binders. - Time Time Spent with patient: Less than 15 minutes
[2019-04-30] MEDS: SEVELAMER HCL 800 MG TABLET PO SCH ×2 (14:15→18:16)
[2019-04-30] MEDS ORDERED: DEXAMETHASONE SOD PHOSPHATE INJ 4 MG/1 ML VIAL ONE (14:34)
[2019-04-30] MEDS ORDERED: MIDAZOLAM 2 MG/2 ML INJ ONE (14:34)
[2019-04-30] MEDS ORDERED: FENTANYL CITRATE INJ/PF 100 MCG/2 ML AMPUL ONE (14:34)
[2019-04-30] MEDS ORDERED: ONDANSETRON HCL INJ/PF 4 MG/2 ML SDV ONE (14:34)
[2019-04-30] MEDS ORDERED: PROPOFOL INJ 200 MG/20 ML VIAL IV ONE (14:34)
[2019-04-30] MEDS ORDERED: BUPIVACAINE HCL 0.5 % INJ/PF 30 ML SDV ONE (14:34)
--- NOTE | 2019-04-30 15:13 | PDOC PROGRESS REPORT ---
Subjective Progress Note for:: 04/30/19 Subjective:: I saw the patient during dialysis this morning. She has no complaints at all. She denies any pain on her leg or ankle while she is lying down. She denies any dizziness. She said she feels good. Last night patient had an episode of hypotension so she was given a liter of IV fluids. I also gave her a dose of midodrine 10 mg. This morning during dialysis her blood pressure seems to be appropriate and being maintained with some ultrafiltration. She is tolerating dialysis very well. She is a scheduled for surgery in her right ankle today. Reason For Visit: RIGHT ANKLE FRACTURE Physical Exam Vital Signs: Temp Pulse Resp BP Pulse Ox 98.3 F 75 16 132/57 H 97 04/30/19 03:00 04/30/19 03:00 04/30/19 03:00 04/30/19 03:00 04/30/19 03:00 Intake & Output 04/29/19 04/30/19 05/01/19 06:59 06:59 06:59 Intake Total 1890 Output Total 0 Balance 1890 Weight 109.1 kg 109.6 kg Vitals during dialysis: Blood pressure 121/61, heart rate of 71, blood flow rate of 400 mL/min and dialysate flow rate of 800 mL/min. Exam: General appearance: PRESENT: no acute distress, cooperative, well-developed, well-nourished Head exam: PRESENT: atraumatic, normocephalic Eye exam: PRESENT: conjunctiva pink, PERRLA. ABSENT: scleral icterus Neck exam: ABSENT: JVD Respiratory exam: PRESENT: Normal breath sounds. ABSENT: crackles, rales, rhonchi, unlabored, wheezes Cardiovascular exam: PRESENT: Regular rate rhythm -+S1, +S2. ABSENT: diastolic murmur, systolic murmur GI/Abdominal exam: PRESENT: normal bowel sounds, soft. ABSENT: guarding, mass, tenderness Extremities exam: ABSENT: No edema, right leg is immobilized Neurological exam: PRESENT: alert, awake, oriented to person, place and time. Skin exam: PRESENT: dry, warm, Results Laboratory Results: 04/30/19 04:09 04/30/19 04:09 04/30/19 04/30/19 04:09 04:09 WBC 11.4 H RBC 4.06 Hgb 10.9 L Hct 33.7 L MCV 83 MCH 27.0 MCHC 32.5 RDW 14.8 H Plt Count 265 Seg Neutrophils % 63.4 Sodium 135.1 L Potassium 4.6 Chloride 94 L Carbon Dioxide 20 L Anion Gap 21 H BUN 61 H D Creatinine 8.02 H Est GFR ( Amer) 6 L Glucose 246 H Calcium 7.3 L Phosphorus 6.3 H Impressions: Ankle X-Ray 04/29/19 00:00 IMPRESSION: Reduction of the previously described fractures of the distal fibula and medial malleolus, which are now in near anatomic alignment. Reduction of the tibiotalar subluxation. copyright 2010 [employer]- All Rights Reserved Chest X-Ray 04/29/19 05:42 IMPRESSION: No acute cardiopulmonary abnormality. copyright 2010 [employer]- All Rights Reserved Assessment & Plan - Diagnosis (1) Closed right ankle fracture Qualifiers: Encounter type: initial encounter Qualified Code(s): S82.891A - Other fracture of right lower leg, initial encounter for closed fracture Is this a current diagnosis for this admission?: Yes Plan: For surgery today by orthopedic surgeon. (2) End-stage renal disease on hemodialysis Is this a current diagnosis for this admission?: Yes Plan: We will do dialysis today for 3 hours, using the patient's left upper arm AV fistula, with 2 potassium bath, blood flow rate of 400 mL per minute, dialysate flow rate of 800 mL per minute, ultrafiltration 1 L as tolerated, no heparin and no Procrit. Patient is being monitored throughout dialysis treatment. We will continue to support with hemodialysis while the patient is here in the hospital. (3) Diabetes mellitus type 2 in obese Is this a current diagnosis for this admission?: Yes (4) Hypertension Qualifiers: Hypertension type: secondary to endocrine disorders Qualified Code(s): I15.2 - Hypertension secondary to endocrine disorders Is this a current diagnosis for this admission?: Yes Plan: Currently acceptable. Continue to hold blood pressure medications unless the blood pressure starts to go up. (5) Fall Qualifiers: Encounter type: initial encounter Qualified Code(s): W19.XXXA - Unspecified fall, initial encounter Is this a current diagnosis for this admission?: Yes - Time Time with patient: 15-25 minutes
[2019-04-30] MEDS ORDERED: CEFAZOLIN INJ 1 GM VIAL ONE (15:26)
[2019-04-30] MEDS ORDERED: MEPERIDINE HCL/PF INJ 25 MG/1 ML DISP.SYRIN IV PRN (16:19)
[2019-04-30] MEDS ORDERED: DIPHENHYDRAMINE HCL 50 MG/ML VIAL IV PRN (16:19)
[2019-04-30] MEDS ORDERED: ONDANSETRON HCL INJ/PF 4 MG/2 ML SDV IV PRN (16:19)
[2019-04-30] MEDS ORDERED: PROMETHAZINE HCL INJ 25 MG/1 ML VIAL IV PRN ×2 (16:19)
[2019-04-30] MEDS ORDERED: FENTANYL CITRATE INJ/PF 100 MCG/2 ML AMPUL IV PRN ×3 (16:19)
[2019-04-30] MEDS ORDERED: MORPHINE SULFATE 10 MG/ML INJ IV PRN (16:19)
--- NOTE | 2019-04-30 17:47 | Operative Report ---
Operative Report DATE OF SURGERY: 04/30/19 PREOPERATIVE DIAGNOSIS: 1. Right ankle displaced bimalleolar fracture. 2. Ri ght ankle syndesmotic disruption POSTOPERATIVE DIAGNOSIS: 1. Right ankle displaced bimalleolar fracture. 2. Right ankle syndesmotic disruption. 3. Right ankle distal tibia articular fracture OPERATION: 1. Open reduction with internal fixation right bimalleolar ankle fracture. 2. Open treatment syndesmotic disruption. 3. Open reduction with internal fixation anterolateral distal tibia articular fracture SURGEON: JACK ELIZONDO ANESTHESIA: Spinal COMPLICATIONS: None ESTIMATED BLOOD LOSS: Minimal INTRAOPERATIVE FINDINGS: A displaced anterolateral fracture fragment of the distal tibia PROCEDURE: Indications for procedure: The patient is a 53-year-old woman with end-stage renal disease on dialysis who sustained a fall at home resulting in a displaced fracture of her right ankle. Description of procedure: Following the induction of an epidural anesthetic and administration of 2 g of Ancef, the patient was positioned supine on the operating room table. All bony prominences were padded. A tourniquet was placed proximally on the right thigh but not inflated. The right lower extremity sterilely prepped and draped in standard fashion. The leg was exsanguinated and the tourniquet inflated to 300 mmHg. Lateral incision was made for sharp incision through skin with blunt dissection to the subcutaneous tissue. Care was taken to identify and protect superficial branching nerves. Fracture lines were identified. There was a displaced fracture of the distal fibula. Attached to the distal fragment was an anterior lateral fragment of the distal tibia articular surface. The lateral malleolus fracture was reduced and clamped into position. The distal fragment of the fibula with the attached articular fragment of the distal tibia was also clamped together. Leg screws were placed from posterior to anterior first in the lateral malleolus and second in the distal fibula and tibia articular fragment. This resulted in anatomic alignment both of the fibula fracture as well as the distal tibia articular segment. A locking lateral plate was applied from the [employer] ankle system. Multiple screws were placed in locking mode distally. At the level of the syndesmosis, the distal tibia demonstrated multiple fracture lines consistent with syndesmotic disruption. With the foot maximally dorsiflexed the syndesmosis was closed reduced and a syndesmotic screw was placed through the plate and through the fibula to tibia reducing the syndesmosis. Multiple nonlocking and locking screws were then placed proximally in the plate. Image intensification was brought in which demonstrated anatomic alignment of the lateral malleolus fracture, anatomic alignment of the distal tibia articular surface, and correct placement of implants. This wound was copiously irrigated. The subcutaneous tissue was closed with 2-0 Vicryl and the skin reapproximated with 3-0 nylon. We next turned our attention to the medial aspect of the ankle. An incision was made at the level of the medial malleolar fracture. Blunt dissection was performed down to the fracture. Fracture lines were identified. The fracture was reduced, clamped into position, and secured with 2 cannulated 4.0 screws. Image intensification was brought in which demonstrated anatomic reduction of the fracture with correct placement of implants. Final imaging demonstrated anatomic reduction of the construct with a concentric mortise. This wound was copiously irrigated. The subcutaneous tissue was closed with 2-0 Vicryl, the skin closed with 3-0 nylon. A bulky sterile dressing followed by a splint with the foot in neutral dorsiflexion was applied. The patient tolerated procedure well without complication was brought recovery in stable condition.
--- NOTE | 2019-04-30 18:00 | RADIOLOGY REPORT (SQ) ---
EXAM DESCRIPTION: NO CHG FLUORO; ANKLE RIGHT AP/LATERAL COMPLETED DATE/TIME: 04/30/2019 5:35 pm REASON FOR STUDY: ORIF RT ANKLE COMPARISON: None. FLUOROSCOPY TIME: 0.4 minutes 2 Images saved to PACS LIMITATIONS: None. PROCEDURE: ORIF right ankle FINDINGS: Images from fluoro document placement of a compression plate on the distal fibula with a l iliana screw extending transversely through the fibula and tibia. There are 2 cannulated screws in the medial malleolus. IMPRESSION: ORIF. Refer to operative note for further information. COMMENT: PQRS 6045F: Fluoroscopy time of the procedure is documented in the report. TECHNICAL DOCUMENTATION: JOB ID: [id number] 2010 [employer]- All Rights Reserved Reading location - IP/workstation name: [email or web address]
--- NOTE | 2019-04-30 18:00 | RADIOLOGY REPORT (SQ) ---
EXAM DESCRIPTION: NO CHG FLUORO; ANKLE RIGHT AP/LATERAL COMPLETED DATE/TIME: 04/30/2019 5:35 pm REASON FOR STUDY: ORIF RT ANKLE COMPARISON: None. FLUOROSCOPY TIME: 0.4 minutes 2 Images saved to PACS LIMITATIONS: None. PROCEDURE: ORIF right ankle FINDINGS: Images from fluoro document placement of a compression plate on the distal fibula with a l iliana screw extending transversely through the fibula and tibia. There are 2 cannulated screws in the medial malleolus. IMPRESSION: ORIF. Refer to operative note for further information. COMMENT: PQRS 6045F: Fluoroscopy time of the procedure is documented in the report. TECHNICAL DOCUMENTATION: JOB ID: [id number] 2010 [employer]- All Rights Reserved Reading location - IP/workstation name: [email or web address]
--- NOTE | 2019-04-30 19:23 | Progress Note ---
Provider Note Provider Note: Patient is a 53-year-old woman with end-stage renal disease and diabetes who underwent operative repair of a right ankle fracture dislocation with articular injury to the distal tibia 04/30/2019. Physical therapy had been ordered for the patient for gait training prior to surgery. Unfortunately the patient had not been seen by therapy as requested prior to her operation. The patient is stable for discharge to home once she is clear by therapy for nonweightbearing ambulation. She should follow-up with Dr. Crocker in 2 weeks for a wound check and cast application.
[2019-04-30] MEDS: OXYCODONE-ACETAMINOPHEN 5-325 MG TABLET PO PRN (19:51)
[2019-04-30] MEDS: INSULIN GLARGINE,HUM.REC.ANLOG 1,000 UNIT/10 ML VIAL SUBCUT SCH (21:16)
[2019-05-01 05:46] LABS: HEMATOCRIT 33.8 % (36.0-47.0); HEMOGLOBIN 11.4 g/dL (12.0-15.5); MEAN CORPUSCULAR HEMOGLOBIN 27.7 pg (27.0-33.4); MEAN CORPUSCULAR HGB CONC 33.7 g/dL (32.0-36.0); MEAN CORPUSCULAR VOLUME 82 fl (80-97); PLATELET COUNT 231 10^3/uL (150-450); RED BLOOD COUNT 4.11 10^6/uL (3.72-5.28); WHITE BLOOD COUNT 12.1 10^3/uL (4.0-10.5)
[2019-05-01 06:21] LABS: ANION GAP 14 (5-19); BLOOD UREA NITROGEN 46 mg/dL (7-20); CALCIUM 7.3 mg/dL (8.4-10.2); CARBON DIOXIDE 24 mmol/L (22-30); CHLORIDE 97 mmol/L (98-107); GLUCOSE 314 mg/dL (75-110); PHOSPHORUS 6.3 mg/dL (2.5-4.5)
[2019-05-01] MEDS: INSULIN LISPRO 100 UNIT/ML 3 ML VIAL SUBCUT SCH ×4 (07:50→21:33)
[2019-05-01] MEDS: SEVELAMER HCL 800 MG TABLET PO SCH ×3 (07:51→16:46)
[2019-05-01] MEDS: DOCUSATE SODIUM 100 MG CAPSULE PO SCH (09:27)
[2019-05-01] MEDS ORDERED: POLYETHYLENE GLYCOL 3350 POWDER 17 GM/1 PACKET PO PRN (11:19)
--- NOTE | 2019-05-01 11:27 | PDOC PROGRESS REPORT ---
Subjective Progress Note for:: 05/01/19 Subjective:: Patient is doing well today. She could not get very far with physical therapy today. Has some tenderness in her leg but nothing overt. Denies any shortness of breath. Had some dizziness when ambulating with PT today. Reason For Visit: RIGHT ANKLE FRACTURE Physical Exam Vital Signs: Temp Pulse Resp BP Pulse Ox 97.6 F 69 17 148/59 H 96 05/01/19 07:59 05/01/19 07:59 05/01/19 07:59 05/01/19 07:59 05/01/19 07:59 Intake & Output 04/30/19 05/01/19 05/02/19 06:59 06:59 06:59 Intake Total 1890 2522 Output Total 0 2035 Balance 1890 487 Weight 109.6 kg 105.3 kg General appearance: PRESENT: no acute distress, cooperative Neck exam: ABSENT: JVD Respiratory exam: PRESENT: clear to auscultation lindsay, unlabored. ABSENT: tachypnea, wheezes Cardiovascular exam: PRESENT: RRR, +S1, +S2. ABSENT: tachycardia GI/Abdominal exam: PRESENT: soft. ABSENT: rebound, rigid, tenderness Extremities exam: PRESENT: other - Extremity in cast with mild tenderness around the region. Neurological exam: PRESENT: alert, awake, oriented to person, oriented to place, oriented to time Results Laboratory Results: 05/01/19 05:15 05/01/19 05:15 05/01/19 05/01/19 05:15 05:15 WBC 12.1 H RBC 4.11 Hgb 11.4 L Hct 33.8 L MCV 82 MCH 27.7 MCHC 33.7 RDW 15.0 H Plt Count 231 Sodium 135.0 L Potassium 5.0 Chloride 97 L Carbon Dioxide 24 Anion Gap 14 BUN 46 H Creatinine 6.39 H Est GFR ( Amer) 8 L Glucose 314 H Calcium 7.3 L Phosphorus 6.3 H Magnesium 2.0 Impressions: Chest X-Ray 04/29/19 05:42 IMPRESSION: No acute cardiopulmonary abnormality. copyright 2011 [employer]- All Rights Reserved Ankle X-Ray 04/30/19 00:00 IMPRESSION: ORIF. Refer to operative note for further information. Fluoroscopy 04/30/19 00:00 IMPRESSION: ORIF. Refer to operative note for further information. Assessment and Plan - Diagnosis (1) Closed right ankle fracture Qualifiers: Encounter type: initial encounter Qualified Code(s): S82.891A - Other fracture of right lower leg, initial encounter for closed fracture Is this a current diagnosis for this admission?: Yes Plan: Acute fracture of distal right fibula, transverse malleolar fracture with displa cement and subluxation Status post ORIF by Dr. Crocker on 04/30/2019 Pain control with Tylenol and Percocet as needed Bowel regimen Nonweightbearing to right leg Physical therapy (2) Lightheadedness Is this a current diagnosis for this admission?: Yes Plan: Occurred when ambulating today. Will recheck orthostatics. Blood pressure looks better today. Not hypotensive at this time. (3) Diabetes mellitus type 2 in obese Is this a current diagnosis for this admission?: Yes Plan: Complicated by diabetic neuropathy. Home regimen needs Tresiba 25 units nightly. Resume Lantus 25 units nightly. Sliding scale insulin and Accu-Cheks. (4) Hypertension Qualifiers: Hypertension type: secondary to endocrine disorders Qualified Code(s): I15.2 - Hypertension secondary to endocrine disorders Is this a current diagnosis for this admission?: Yes Plan: She takes Coreg twice daily and amlodipine at night at home. Currently, we will continue to hold blood pressure medications due to episodes of hypotension. Will resume gradually if blood pressure starts to run high. (5) End-stage renal disease on hemodialysis Is this a current diagnosis for this admission?: Yes Plan: Nephrology consulted. Receives dialysis Friday. Reports that ESRD secondary to diabetes. Sevelamer for hyperphosphatemia. (6) Fall Qualifiers: Encounter type: initial encounter Qualified Code(s): W19.XXXA - Unspecified fall, initial encounter Is this a current diagnosis for this admission?: Yes Plan: Noted to be lightheaded at the time of fall but no head impact. Patient's daughter states patient was hypotensive in the 90s over 50s upon arrival of EMS. Lightheadedness was likely secondary to hypotension possibly from antihypertensive medications. - Time Time Spent with patient: Less than 15 minutes
[2019-05-01] MEDS: OXYCODONE-ACETAMINOPHEN 5-325 MG TABLET PO PRN (12:15)
[2019-05-01] MEDS: HEPARIN SOD (PORCINE) 5,000 UNIT/ML 1 ML VIAL SUBCUT SCH ×2 (15:19→21:34)
[2019-05-01] MEDS: INSULIN GLARGINE,HUM.REC.ANLOG 1,000 UNIT/10 ML VIAL SUBCUT SCH (21:33)
[2019-05-02] MEDS: OXYCODONE-ACETAMINOPHEN 5-325 MG TABLET PO PRN (00:03)
[2019-05-02] MEDS: HEPARIN SOD (PORCINE) 5,000 UNIT/ML 1 ML VIAL SUBCUT SCH ×2 (05:34→13:43)
[2019-05-02] MEDS: INSULIN LISPRO 100 UNIT/ML 3 ML VIAL SUBCUT SCH ×2 (07:26→12:30)
[2019-05-02] MEDS: SEVELAMER HCL 800 MG TABLET PO SCH ×2 (07:30→12:30)
[2019-05-02] MEDS ORDERED: SENNOSIDES/DOCUSATE 8.6-50 MG 1 EACH TABLET PO SCH (10:00)
--- NOTE | 2019-05-02 12:55 | PDOC DISCHARGE SUMMARY ---
Impression - Admit/DC Date/PCP Admission Date/Primary Care Provider: 04/29/19 09:19 NATHALIE LIU NP Discharge Date: 05/02/19 - Discharge Diagnosis (1) Closed right ankle fracture Is this a current diagnosis for this admission?: Yes (2) Lightheadedness Is this a current diagnosis for this admission?: Yes (3) Orthostatic hypotension Is this a current diagnosis for this admission?: Yes (4) Diabetes mellitus type 2 in obese Is this a current diagnosis for this admission?: Yes (5) Hypertension Is this a current diagnosis for this admission?: Yes (6) End-stage renal disease on hemodialysis Is this a current diagnosis for this admission?: Yes (7) Fall Is this a current diagnosis for this admission?: Yes - Additional Information Resuscitation Status: Full Code Discharge Diet: As Tolerated Discharge Activity: Other - Nonweightbearing on right foot. Nonweightbearing ambulation. Referrals: JACK CROCKER MD [ACTIVE PROVISIONAL STAFF] - 05/18/19 11:00 am () Prescriptions: Oxycodone HCl/Acetaminophen [Percocet 5-325 mg Tablet] 1 tab PO Q6HP PRN #12 tablet PRN Reason: Sennosides/Docusate 8.6-50 mg [Senna Plus Tablet] 2 each PO DAILY 30 Days tablet Home Medications: Carvedilol [Coreg 12.5 mg Tablet] 12.5 mg PO Q12 04/29/19 Ferric Citrate [Auryxia] 630 mg PO MEALS 04/29/19 Insulin Degludec [Tresiba Flextouch U-200] 25 units SQ QPM 04/29/19 Vit B Comp No.3/Folic/C/Biotin [[place]wend[facility]yn[place] Rx Tablet] 1 tab PO DAILY 04/29/19 Oxycodone HCl/Acetaminophen [Percocet 5-325 mg Tablet] 1 tab PO Q6HP PRN #12 tablet 05/02/19 Sennosides/Docusate 8.6-50 mg [Senna Plus Tablet] 2 each PO DAILY 30 Days tablet 05/02/19 History of Present Illiness History of Present Illness: OSMIN LORA is a 53 year old female Tuvaluan-speaking female with a history of hypertension, diabetes mellitus with diabetic neuropathy, ESRD on dialysis MWF, who presents to the hospital after experiencing a fall. Patient states that she was getting up to go to the bathroom when she suddenly felt lightheaded and while attempting to move slipped on the floor fell. After that she is still experiencing significant right ankle pain and was unable to bear any weight on her foot. Ambulance was called and patient was brought to the hospital. Patient never syncopized and was awake throughout the event. Patient took her blood pressure medications last night. Patient still experiencing pain in her right ankle at this time but improved. She does have diabetic neuropathy history of pain sensation is limited. In the ER, patient was noted to have righ t ankle fracture subsequently hospitalist consulted for admission. Hospital Course Hospital Course: SHe was admitted and treated for a right ankle bimalleolar fracture with dislocation which occurred after a fall that was precipitated by lightheadedness. Upon admission she was noted to be mildly hypotensive. Her blood pressure medications were held. She initially received some IV fluids. Yesterday orthostatics which showed that she was positive for orthostatic hypotension. This was likely secondary to some of her blood pressure medications especially the amlodipine. SHe underwent surgical open reduction with internal fixation performed by the orthopedist Dr. Crocker. Nonweightbearing ambulation was recommended by Dr. Crocker and she was set up to receive physical and occupational therapy at home after being evaluated by physical therapist. According to the recommendations of PT, she was also set up with a wheelchair, bedside commode, shower chair and a front wheel walker to help her with her ADLs. These we will delivered to patient's home tomorrow but patient's daughter feels that they can adequately care for patient today before this had delivered and is fine with her being discharged. Pain medication and bowel regimen prescribed. Patient received a session of scheduled dialysis while in the hospital. I have advised patient that I have stopped all your blood pressure medications [losartan, amlodipine and Coreg] due to this hypotension and her BP has been normal within the hospital and to monitor her blood pressures at home and can reintroduce the Coreg if your blood pressure starts to run high again. Physical Exam Vital Signs: Temp Pulse Resp BP Pulse Ox 98.3 F 64 17 114/58 L 98 05/02/19 07:30 05/02/19 07:30 05/02/19 07:30 05/02/19 07:30 05/02/19 07:30 Intake & Output 05/01/19 05/02/19 05/03/19 06:59 06:59 06:59 Intake Total 6302 1747 Output Total 2035 0 Balance 487 1747 Weight 105.3 kg 107.1 kg General appearance: PRESENT: no acute distress, cooperative Respiratory exam: PRESENT: symmetrical. ABSENT: accessory muscle use, retraction, tachypnea, unlabored Extremities exam: PRESENT: other - Right leg in cast Neurological exam: PRESENT: alert, awake, oriented to person, oriented to place, oriented to time Results Laboratory Results: WBC 12.1 10^3/uL (4.0-10.5) H 05/01/19 05:15 RBC 4.11 10^6/uL (3.72-5.28) 05/01/19 05:15 Hgb 11.4 g/dL (12.0-15.5) L 05/01/19 05:15 Hct 33.8 % (36.0-47.0) L 05/01/19 05:15 MCV 82 fl (80-97) 05/01/19 05:15 MCH 27.7 pg (27.0-33.4) 05/01/19 05:15 MCHC 33.7 g/dL (32.0-36.0) 05/01/19 05:15 RDW 15.0 % (11.5-14.0) H 05/01/19 05:15 Plt Count 231 10^3/uL (150-450) 05/01/19 05:15 Lymph % (Auto) 26.2 % (13-45) 04/30/19 04:09 [place] % (Auto) 8.9 % (3-13) 04/30/19 04:09 Eos % (Auto) 1.0 % (0-6) 04/30/19 04:09 Baso % (Auto) 0.5 % (0-2) 04/30/19 04:09 Absolute Neuts (auto) 7.2 10^3/uL (1.7-8.2) 04/30/19 04:09 Absolute Lymphs (auto) 3.0 10^3/uL (0.5-4.7) 04/30/19 04:09 Absolute Monos (auto) 1.0 10^3/uL (0.1-1.4) 04/30/19 04:09 Absolute Eos (auto) 0.1 10^3/uL (0.0-0.6) 04/30/19 04:09 Absolute Basos (auto) 0.1 10^3/uL (0.0-0.2) 04/30/19 04:09 Seg Neutrophils % 63.4 % (42-78) 04/30/19 04:09 PT 14.5 SEC (11.4-15.4) 04/30/19 04:09 INR 1.13 04/30/19 04:09 APTT 32.5 SEC (23.5-35.8) 04/30/19 04:09 Sodium 135.0 mmol/L (137-145) L 05/01/19 05:15 Potassium 5.0 mmol/L (3.6-5.0) 05/01/19 05:15 Chloride 97 mmol/L (98-107) L 05/01/19 05:15 Carbon Dioxide 24 mmol/L (22-30) 05/01/19 05:15 Anion Gap 14 (5-19) 05/01/19 05:15 BUN 46 mg/dL (7-20) H 05/01/19 05:15 Creatinine 6.39 mg/dL (0.52-1.25) H 05/01/19 05:15 Est GFR ( Amer) 8 (>60) L 05/01/19 05:15 Est GFR (MDRD) Non-Af 7 (>60) L 05/01/19 05:15 Glucose 314 mg/dL (75-110) H 05/01/19 05:15 POC Glucose 152 mg/dL (70-110) H 05/02/19 12:26 Calcium 7.3 mg/dL (8.4-10.2) L 05/01/19 05:15 Phosphorus 5.9 mg/dL (2.5-4.5) H 05/02/19 04:55 Magnesium 2.0 mg/dL (1.6-2.3) 05/01/19 05:15 Total Bilirubin 0.6 mg/dL (0.2-1.3) 04/29/19 04:25 Direct Bilirubin 0.6 mg/dL (0.0-0.4) H 04/29/19 04:25 Neonat Total Bilirubin Not Reportable 04/29/19 04:25 Neonat Direct Bilirubin Not Reportable 04/29/19 04:25 Neonat Indirect Bili Not Reportable 04/29/19 04:25 AST 26 U/L (14-36) 04/29/19 04:25 ALT 21 U/L (<35) 04/29/19 04:25 Alkaline Phosphatase 335 U/L (38-126) H 04/29/19 04:25 Total Protein 8.2 g/dL (6.3-8.2) 04/29/19 04:25 Albumin 3.8 g/dL (3.5-5.0) 04/29/19 04:25 Impressions: Ankle X-Ray 04/29/19 00:00 IMPRESSION: 1. Acute comminuted oblique fracture of the distal diametaphysis of the right fibula, 0.6 cm posterior- lateral displacement. 2. Transverse fracture of the right medial malleolus, 0.9 cm lateral displacement. 3. Moderate lateral talotibial subluxation moderate lateral tilt. Ankle X-Ray 04/29/19 00:00 IMPRESSION: Reduction of the previously described fractures of the distal fibula and medial malleolus, which are now in near anatomic alignment. Reduction of the tibiotalar subluxation. copyright 2010 [employer]- All Rights Reserved Chest X-Ray 04/29/19 05:42 IMPRESSION: No acute cardiopulmonary abnormality. copyright 2010 [employer]- All Rights Reserved Ankle X-Ray 04/30/19 00:00 IMPRESSION: ORIF. Refer to operative note for further information. Fluoroscopy 04/30/19 00:00 IMPRESSION: ORIF. Refer to operative note for further information. Plan Time Spent: Less than 30 Minutes Stroke Is this a Stroke Patient?: No Acute Heart Failure - Is this a Heart Failure Patient?: No
[2019-05-02] MEDS ORDERED: ONDANSETRON HCL INJ/PF 4 MG/2 ML SDV ONE (13:12)
[2019-05-02 13:27] VITALS: BP 132/57
[2019-05-02] MEDS ORDERED: ONDANSETRON HCL INJ/PF 4 MG/2 ML SDV IV ONE (14:00)
== END 2019-05-02 14:15 | disposition home health service (06) | DRG 492 ==
LOC: ER 04:03 → EH 09:19 → 4W 10:55 → 4S 04-30 15:19
PROVIDERS: ADMIT Internal Medicine; ATTEND Internal Medicine
PROC: 0QSJ04Z Reposition Right Fibula with Internal Fixation Device, Open Approach (ICD-10-PCS; principal; 2019-04-29)
PROC: 0QSG04Z Reposition Right Tibia with Internal Fixation Device, Open Approach (ICD-10-PCS; 2019-04-29)
PROC: 0SSFXZZ Reposition Right Ankle Joint, External Approach (ICD-10-PCS; 2019-04-30)
PROC: 5A1D70Z Performance of Urinary Filtration, Intermittent, Less than 6 Hours Per Day (ICD-10-PCS; 2019-04-30)
DX: S82.841A Displaced bimalleolar fracture of right lower leg, initial encounter for closed fracture (principal); N18.6 End stage renal disease; I12.0 Hypertensive chronic kidney disease with stage 5 chronic kidney disease or end stage renal disease; W18.30XA Fall on same level, unspecified, initial encounter; I95.1 Orthostatic hypotension; E11.40 Type 2 diabetes mellitus with diabetic neuropathy, unspecified; I10 Essential (primary) hypertension; E11.22 Type 2 diabetes mellitus with diabetic chronic kidney disease; Z99.2 Dependence on renal dialysis; Y93.9 Activity, unspecified; Y92.009 Unspecified place in unspecified non-institutional (private) residence as the place of occurrence of the external cause; Z79.4 Long term (current) use of insulin; Z83.3 Family history of diabetes mellitus
CPT/HCPCS: 36415; 71045; 80048; 80053; 82962; 83735; 84100; 85025; 85027; 85610; 85730; 93005; 93010; 99285; 99152; J0690; J1100; J1644; J1815; J2250; J2270; J2405; J2704; J3010; J3490; J7030